=== PATIENT | female | born 1995 | race Caucasian/White ===

== ENCOUNTER 2018-05-31 21:01 | Emergency (ER) | payer BC ==
[~2018-05-31] VITALS: Ht 160 cm; Wt 66.6 kg
[~2018-05-31 21:01] MED LIST: INDOCIN50 MG PO
[2018-05-31] MEDS ORDERED: TYLENOL WITH C1 EACH PO (22:51)
[2018-05-31] MEDS ORDERED: FLEXERIL10 MG PO (22:51)
[2018-05-31] MEDS ORDERED: MOTRIN600 MG PO (22:51)
[2018-05-31 23:17] VITALS: BP 125/80
== END 2018-05-31 23:26 | disposition home or self-care (01) ==
LOC: EME 21:01
PROC: 2W3JX1Z Immobilization of Right Finger using Splint (ICD-10-PCS; principal; 2018-05-31)
DX: S62.604A Fracture of unspecified phalanx of right ring finger, initial encounter for closed fracture (principal); R51 Headache; M54.2 Cervicalgia; Y04.0XXA Assault by unarmed brawl or fight, initial encounter; F17.200 Nicotine dependence, unspecified, uncomplicated
CPT/HCPCS: 73140; 99281; 99285